=== PATIENT | female | born 1970 | race African-American/Black ===

== ENCOUNTER 2022-08-24 17:50 | Emergency (ER) | payer OTHER, SELFPAY ==
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
[2022-08-24 18:01] VITALS: PULSE 74; RESP 18; TEMP 36.6; O2SAT 100
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
[2022-08-24 18:36] VITALS: BP 110/57; PULSE 74; RESP 18; TEMP 36.6; O2SAT 100
== END 2022-08-24 19:05 | disposition short-term general hospital (02) ==
PROVIDERS: Emergency Provider Nurse Practitioner
DX: S12.9XXA Fracture of neck, unspecified, initial encounter (principal); S20.211A Contusion of right front wall of thorax, initial encounter; V49.50XA Passenger injured in collision with unspecified motor vehicles in traffic accident, initial encounter; Z85.3 Personal history of malignant neoplasm of breast
CPT/HCPCS: 71046; 72040; 99215; G0463; L0140